=== PATIENT | female | born 1995 | race Caucasian/White ===

== ENCOUNTER 2017-03-27 22:39 | Emergency (ER) | payer OTHER ==
[~2017-03-27] VITALS: Ht 160 cm; Wt 54.4 kg
[~2017-03-27 22:39] MED LIST: DOXY100C76 PO; HYDR-389 PO
[2017-03-27 22:44] VITALS: TEMP 36.3; Ht 160 cm; Wt 54.4 kg
[2017-03-27] MEDS ORDERED: MULT-506 PO (23:15)
[2017-03-27] MEDS ORDERED: QUET1TAB34 PO (23:16)
[2017-03-27] MEDS ORDERED: MAGN250T3 PO (23:16)
[2017-03-28] MEDS ORDERED: ONDANSETRON INJ 2 MG/ML 2 ML VIAL IV STA (00:50)
[2017-03-28] MEDS ORDERED: ONDANSETRON INJ 2 MG/ML 2 ML VIAL ONE (00:51)
--- NOTE | 2017-03-28 00:57 | EMERGENCY ROOM VISIT NOTE ---
History Report prepared by Vince: Ant Hyde Under the Supervision of: Dr. Ivett Johnson D.O. First contact with patient: 00:05 Chief Complaint: MENTAL HEALTH EVALUATION Stated Complaint: SUICIDAL IDEATION AND ABD PAIN History of Present Illness The patient is a 21 year old female who presents to the Emergency Room for a mental health evaluation. She was recently diagnosed with schizoaffective bipolar disorder. She is currently on Seroquel 100 mg PO at night. She denies any changes to her dosage, stating that it is helping her significantly. Recently, the patient states that she has been having increased stressors in her life. Today after her appointment with her therapist, she found out that she may be homeless and began to feel severely depressed. She does not normally drink alcohol because of a family history of alcoholism, but decided to drink secondary to her stress and her feeling of depression. She then felt suicidal without a plan. She called [facility] who evaluated her and thought she should come to the ER for a medical clearance for treatment at [facility]. She claimed that she did not feel safe at home alone. She also notes that she began to feel a sudden onset sharp, stabbing lower abdominal pain at this time as well. Her pain was exacerbated with movement and breathing, causing it to radiate into her upper abdomen. She has a past medical history of ruptured ovarian cysts and believes that her pain was similar to that. She denies any fevers, chills, chest pain, shortness of breath, vomiting, back pain, bowel trouble, or abnormal urinary symptoms. When she arrived to the hospital, her pain went away and she also does not want to seek further mental health treatment stating that she is "fine and would like to go home." She experiences paranoia frequently, but states this is chronic. She denies any hallucinations. She intermittently smokes marijuana because it occasionally helps, but it also sometimes makes her feel more paranoid. Stress does not exacerbate her paranoia, it only worsens her anxiety. She has had suicidal ideations in the past, but has never had a plan. She denies any chance for or previous abdominal surgeries. Source of History: patient Onset: today Position: other (Mental Health) Symptom Intensity: moderate Quality: other (Suicidal ideation, without plan) Timing: constant Associated Symptoms: No fevers, No chills, No chest pain, No SOB, No vomiting, No abdominal pain, No back pain, No melena, No hematochezia, No diarrhea, No urinary symptoms Note: She had abdominal pain [employer], but it has resolved. She denies any hallucinations. Review of Systems See HPI for pertinent positives & negatives. A total of 10 systems reviewed and were otherwise negative. Past Medical & Surgical Medical Problems: (1) Anxiety disorder (2) Asthma (3) Depression (4) INFECTIOUS MONONUCLEOSIS (5) Panic attack (6) Pneumonia Family History Patient reports no known family medical history. Social History Smoking Status: Never Smoker Smokeless Tobacco Use: No Alcohol Use: occasionally Marital Status: single Housing Status: lives with family Occupation Status: employed Current/Historical Medications Scheduled Magnesium (Magnesium 250 mg), 1 TAB PO DAILY Multivitamin (Multivitamin), 1 TAB PO DAILY Quetiapine Fumarate (Seroquel), 100 MG PO HS Allergies Coded Allergies: No Known Allergies (Unverified , 03/27/17) Physical Exam Vital Signs Date Time Temp Pulse Resp B/P (MAP) Pulse Ox O2 Delivery O2 Flow Rate FiO2 03/28/17 03:19 79 16 115/94 97 03/28/17 01:56 99 20 96/63 99 Room Air 03/28/17 00:08 95 20 104/67 98 Room Air 03/27/17 22:44 36.3 89 19 116/75 97 Room Air Physical Exam GENERAL: alert, well appearing, well nourished, no distress, non-toxic EYE EXAM: normal conjunctiva, PERRL and EOM's grossly intact OROPHARYNX: no exudate, no erythema, lips, buccal mucosa, and tongue normal and mucous membranes are moist NECK: supple, no nuchal rigidity, no adenopathy, non-tender LUNGS: Clear to auscultation. Normal chest wall mechanics HEART: no murmurs, S1 normal and S2 normal ABDOMEN: abdomen soft, non-tender, normo-active bowel sounds, no masses, no rebound or guarding. BACK: Back is symmetrical on inspection and there is no deformity, no midline tenderness, no CVA tenderness. SKIN: no rashes and no bruising UPPER EXTREMITIES: upper extremities are grossly normal. LOWER EXTREMITIES: No pitting edema. NEURO EXAM: Normal sensorium, cranial nerves II-XII grossly intact, normal speech, no gross weakness of arms, no gross weakness of legs. PSYCH EXAM: Positive depression and anxiety. Transient suicidal thoughts without a plan. Positive paranoia but chronic. No hallucinations. Medical Decision & Procedures ER Provider Diagnostic Interpretation: Radiology results have been interpreted by me. 1 VIEW CHEST X-RAY: No cardiomegaly, no effusion, no widened mediastinum, no focal infiltrate 2 VIEW ABDOMINAL X-RAY: Scattered air and stool, no definite SBO, no free air Per me Laboratory Results 03/28/17 00:03 Red Blood Count 4.81, Mean Corpuscular Volume 92.5, Mean Corpuscular Hemoglobin 31.6, Mean Corpuscular Hemoglobin Concent 34.2, Mean Platelet Volume 10.2, Neutrophils (%) (Auto) 49.6, Lymphocytes (%) (Auto) 40.3, Monocytes (%) (Auto) 6.8, Eosinophils (%) (Auto) 2.6, Basophils (%) (Auto) 0.5, Neutrophils # (Auto) 2.92, Lymphocytes # (Auto) 2.37, Monocytes # (Auto) 0.40, Eosinophils # (Auto) 0.15, Basophils # (Auto) 0.03 03/28/17 00:03 Test 03/28/17 00:03 03/28/17 00:20 White Blood Count 5.88 K/uL (4.8-10.8) Red Blood Count 4.81 M/uL (4.2-5.4) Hemoglobin 15.2 g/dL (12.0-16.0) Hematocrit 44.5 % (37-47) Mean Corpuscular Volume 92.5 fL (80-100) Mean Corpuscular Hemoglobin 31.6 pg (25-34) Mean Corpuscular Hemoglobin Concent 34.2 g/dl (32-36) Platelet Count 235 K/uL (130-400) Mean Platelet Volume 10.2 fL (7.4-10.4) Neutrophils (%) (Auto) 49.6 % Lymphocytes (%) (Auto) 40.3 % Monocytes (%) (Auto) 6.8 % Eosinophils (%) (Auto) 2.6 % Basophils (%) (Auto) 0.5 % Neutrophils # (Auto) 2.92 K/uL (1.4-6.5) Lymphocytes # (Auto) 2.37 K/uL (1.2-3.4) Monocytes # (Auto) 0.40 K/uL (0.11-0.59) Eosinophils # (Auto) 0.15 K/uL (0-0.5) Basophils # (Auto) 0.03 K/uL (0-0.2) RDW Standard Deviation 41.4 fL (36.4-46.3) RDW Coefficient of Variation 12.2 % (11.5-14.5) Immature Granulocyte % (Auto) 0.2 % Immature Granulocyte # (Auto) 0.01 K/uL (0.00-0.02) Anion Gap 8.0 mmol/L (3-11) Est Creatinine Clear Calc Drug Dose 87.2 ml/min Estimated GFR () 115.2 Estimated GFR (Non- 99.4 BUN/Creatinine Ratio 9.8 (10-20) Calcium Level 9.0 mg/dl (8.5-10.1) Total Bilirubin 0.8 mg/dl (0.2-1) Direct Bilirubin 0.2 mg/dl (0-0.2) Aspartate Amino Transf (AST/SGOT) 13 U/L (15-37) Alanine Aminotransferase (ALT/SGPT) 23 U/L (12-78) Alkaline Phosphatase 59 U/L (45-117) Total Protein 8.0 gm/dl (6.4-8.2) Albumin 4.3 gm/dl (3.4-5.0) Lipase 122 U/L (73-393) Thyroid Stimulating Hormone (TSH) 2.560 uIu/ml (0.300-4.500) Human Chorionic Gonadotropin, Qual NEG (NEG) Ethyl Alcohol mg/dL 40.0 mg/dl (0-3) Urine Color DK YELLOW Urine Appearance CLEAR (CLEAR) Urine pH 5.0 (4.5-7.5) Urine Specific [place] 1.028 (1.000-1.030) Urine Protein NEG (NEG) Urine Glucose (UA) NEG (NEG) Urine Ketones NEG (NEG) Urine Occult Blood NEG (NEG) Urine Nitrite NEG (NEG) Urine Bilirubin NEG (NEG) Urine Urobilinogen NEG (NEG) Urine Leukocyte Esterase NEG (NEG) Urine Opiates Screen NEG (NEG) Urine Methadone, Qualitative NEG (NEG) Urine Barbiturates NEG (NEG) Urine Phencyclidine (PCP) Level NEG (NEG) Ur Amphetamine/Methamphetamine NEG (NEG) MDMA (Ecstasy) Screen NEG (NEG) Urine Benzodiazepines Screen NEG (NEG) Urine Cocaine Metabolite NEG (NEG) Urine Marijuana (THC) NEG (NEG) Laboratory results per my review. Medications Administered Medications (Trade) Dose Ordered Sig/Abraham Route Start Time Stop Time Status Last Admin Dose Admin Ondansetron HCl (Zofran Inj) 4 mg STK-MED ONCE .ROUTE 03/28/17 00:51 03/28/17 00:52 DC 03/28/17 00:58 4 MG Prochlorperazine Edisylate (Compazine Inj) 5 mg NOW STAT IV 03/28/17 01:28 03/28/17 01:30 DC 03/28/17 01:56 5 MG Diphenhydramine HCl (Benadryl Inj) 12.5 mg NOW STAT IV 03/28/17 01:28 03/28/17 01:30 DC 03/28/17 01:56 12.5 MG Prochlorperazine Maleate (Compazine Tab) 15 mg NOW ONCE PO 03/28/17 03:00 03/28/17 03:01 DC 03/28/17 03:00 15 MG ED Course 0005: The patient was evaluated in room A7. A complete history and physical exam was performed. 0050: I was informed that the patient has begun to vomit. Ordered Zofran Inj 4 mg IV 0128: Ordered Benadryl Inj 12.5 mg IV, Compazine Inj 5 mg IV 0234: I spoke with Case Management who had just evaluated the patient at this time. They spoke with the patient's boyfriend who told them that he has no concern for the patient's safety and that he will be staying with her tonight. He confirmed that she has had no previous suicidal attempts, only statements without plans. 0300: Ordered Compazine Tab 15 mg PO 0330: Upon reevaluation, the patient is feeling better. I discussed the findings and the treatment plan with the patient. She verbalizes agreement and understanding. She was discharged home. Medical Decision Differential diagnosis: Etiologies such as mood disorder, infection, hypoglycemia, electrolyte abnormalities, cardiac sources, intracerebral event, toxicologic, neurologic, as well as others were entertained. Unclear etiology of pt's intermittent abd pain. Labs and imaging reassuring. Sx resolved by arrival. Pt feels related to stress and etoh use earlier. Pt seen and evaluated by psych case assistant and felt did not meet inpatient requirements. No ground to cert. Pt offered admission and declined. Pt will contract for safety and case assistant will contact pt's psychiatrist and therapist. Pt verbalized understanding of sx to watch/return for. Medication Reconcilliation Current Medication List: was personally reviewed by me Blood Pressure Screening Patient's blood pressure: Normal blood pressure Blood pressure disposition: Did not require urgent referral Impression Primary Impression: Acute anxiety Additional Impression: Stress Scribe Attestation The scribe's documentation has been prepared under my direction and personally reviewed by me in its entirety. I confirm that the note above accurately reflects all work, treatment, procedures, and medical decision making performed by me. Departure Information Dispostion Home / Self-Care Referrals No Doctor, Assigned (PCP) Forms HOME CARE DOCUMENTATION FORM, IMPORTANT VISIT INFORMATION Patient Instructions [facility] Additional Instructions Please follow up closely with your therapist and psychiatrist. Please continue regular medications as prescribed. If you have any worsening thoughts, have thoughts of wanting to hurt herself or someone else, feel your paranoia is worsening, feel more anxious, or you've any other new concerns please return the emergency room. Problem Qualifiers
[2017-03-28 01:28] LABS: BASO % 0.5 %; BASO ABS # 0.03 K/uL (0-0.2); EOS % 2.6 %; EOS ABS # 0.15 K/uL (0-0.5); HEMATOCRIT 44.5 % (37-47); HEMOGLOBIN 15.2 g/dL (12.0-16.0); IG# 0.01 K/uL (0.00-0.02); LYMPH % 40.3 %; LYMPH ABS # 2.37 K/uL (1.2-3.4); MEAN CELL VOLUME 92.5 fL (80-100); MEAN CORPUSCULAR HEMOGLOBIN 31.6 pg (25-34); MEAN CORPUSCULAR HGB CONC 34.2 g/dl (32-36); MEAN PLATELET VOLUME 10.2 fL (7.4-10.4); MONO % 6.8 %; NEUT % 49.6 %; NEUT ABS # 2.92 K/uL (1.4-6.5); PLATELET COUNT 235 K/uL (130-400); RED CELL DISTRIBUTION WIDTH CV 12.2 % (11.5-14.5); RED CELL DISTRIBUTION WIDTH SD 41.4 fL (36.4-46.3); WHITE BLOOD COUNT 5.88 K/uL (4.8-10.8)
[2017-03-28] MEDS ORDERED: PROCHLORPERAZINE 5 MG/ML 2 ML VIAL IV STA (01:28)
[2017-03-28] MEDS ORDERED: DiphenhydrAMINE HCL 50 MG/ML VIAL IV STA (01:28)
[2017-03-28 01:31] LABS: ALBUMIN 4.3 gm/dl (3.4-5.0); CREATININE 0.83 mg/dl (0.60-1.20); POTASSIUM 4.2 mmol/L (3.5-5.1)
[2017-03-28] MEDS ORDERED: PROCHLORPERAZINE MALEATE 5 MG TAB PO ONE (03:00)
[2017-03-28] MEDS ORDERED: EMPTY 8 DRAM VIAL ONE (03:08)
[2017-03-28 03:19] VITALS: BP 115/94; PULSE 79; O2SAT 97
--- NOTE | 2017-03-28 07:33 | DIAGNOSTIC IMAGING REPORT ---
CHEST AND ABDOMEN 2 VIEWS HISTORY: Generalized abdominal pain. Nausea. Vomiting. COMPARISON: None. FINDINGS: The lungs are clear. The cardiomediastinal silhouette is within normal limits. There is no pneumoperitoneum or pneumatosis. The bowel gas pattern is unremarkable. No evidence for bowel obstruction. No renal or ureteral calculi. Multiple pelvic phleboliths are noted. IMPRESSION: No acute cardiopulmonary process. No evidence for bowel obstruction. Electronically signed by: Valdez Mcmullen M.D. 03/28/2017 7:32 AM Dictated Date/Time: 03/28/2017 7:30 AM
== END 2017-03-28 03:20 | disposition home or self-care (01) ==
LOC: C.EDB 22:40 → C.EDA 03-28 03:20
DX: Z00.8 Encounter for other general examination (principal); F41.8 Other specified anxiety disorders; R10.84 Generalized abdominal pain; R11.2 Nausea with vomiting, unspecified